=== PATIENT | male | born 1985 | race Caucasian/White ===

== ENCOUNTER → 2017-10-29 08:42 | Outpatient (REF) | payer SELFPAY | LOC: OM 08:42 | PROVIDERS: Visit Provider Nurse Practitioner Family | DX: Z02.83 Encounter for blood-alcohol and blood-drug test (principal) ==

== ENCOUNTER 2019-01-29 07:48 | Emergency (ER) | payer SELFPAY ==
[2019-01-29 07:53] VITALS: BP 145/101; PULSE 80; RESP 16; TEMP 36.2; O2SAT 99
--- NOTE | 2019-01-29 08:06 | ED.GENADUL_ITS ---
Discharge Plan Disposition Patient Disposition: HOME Condition: Stable Discharge Details Chief Complaint: Nk/Back Pain Clinical Impression: Low back pain ED Provider: Maldonado Ramsey Home Meds and New Rx's Prescriptions: New cyclobenzaprine 10 mg tablet 10 mg PO TID PRN (Reason: muscle spasm) Qty: 30 RF: 0 Discharge Instructions Instructions: Cyclobenzaprine (By mouth), Low Back Strain (ED) Additional Instructions: You can take 1000mg tylenol and 600mg ibuprofen every 6 hours for pain as needed Do not drink alcohol or operate heavy machinery if you take this medicine Start physical therapy and I have placed you on our follow up list to expedite an appointment with a primary care provider if you have high fevers, severe worsening pain or difficulty urinating return to the emergency department Stand Alone Forms: Physical Therapy Referral Medical Decision Making 33 yo male with no chronic medical problems comes in with intermittent right lower back pain radiating down the right leg. Denies any trauma, fevers, chills, denies difficulty urinating or changes in bowel movements, and denies ivdu. He feels better standing andd worse with bending forward, no midline back pain or warmth or erythema, has reproducible pain over right lower lumbar region. No saddle anesthesia, 5/5 strength in lower extremities, normal reflexes and noraml distal sensastion. I suspect likely sciatica vs disc herniation. No findings to suggest sea, cauda equina and do not feel emergent MRI indicated. Will have him start PT and get set up with a pcp, return precautions given Differential Diagnosis Differential Diagnosis: strain, sciatica, disc herniation HPI General Mode of arrival: ambulatory . Date/Time Provider Initiated Documentation: 01/29/19 07:52 . Limitations to Documentation: no limitations . Information obtained by: patient . History of Present Illness 33 year old M presents to the emergency department with the chief complaint of back pain, described as moderate, Quality is described as aching, Patient reports no radiation. Patient started experiencing this week(s) (6) and it has been intermittent. No relieving factors improve symptom(s), No exacerbating factors reported . Patient notes no other symptoms.. Patient did receive the following treatments prior to arrival, none Related Data Home Medications Medication Instructions Recorded Confirmed cyclobenzaprine 10 mg PO TID PRN #30 tab 01/29/19 Previous Rx's Medication Instructions Recorded cyclobenzaprine 10 mg PO TID PRN #30 tab 01/29/19 Allergies Allergy/AdvReac Type Severity Reaction Status Date / Time bupropion HCl Allergy Mild Hives Unverified 01/29/19 07:58 [From Wellbutrin] General Stated Complaint: Nk/Back Pain SUZANNE: 3 Review of Systems All systems reviewed & are unremarkable except as noted in HPI and below Constitutional Constitutional: Denies chills, Denies fever(s) and Denies weakness Cardiovascular Cardiovascular: Denies chest pain and Denies dyspnea Respiratory Respiratory: Denies dyspnea Gastrointestinal Gastrointestinal: Denies abdominal pain, Denies nausea and Denies vomiting Musculoskeletal Musculoskeletal: Denies joint swelling Neurologic Neurologic: Denies weakness PFSH Social History Smoking/Tobacco Use Status: Current every day Tobacco Type: cigarettes and e- cigarettes Substance use type: does not use Do you feel safe in your relationship?: Yes Exam Const General: no acute distress Orientation: alert HENMT Head: normal to inspection Ears: external ears normal General nose exam: external nose normal Mouth: moist mucous membranes Eyes General: appearance normal, both eyes and all related structures Neck Neck: normal visual inspection Resp Effort & Inspection: normal respiratory effort and able to speak in complete sentences Cardio Rate: regular rate Back/Spine/Pelvis Back: no CVA tenderness Skin General skin exam: no rashes or lesions noted Neuro General: alert and oriented x3 Extrem General: normal to inspection Psych Mental Status: mental status grossly normal Course Vital Signs Vital signs: Vital Signs Temperature 36.2 C L 01/29/19 07:53 Pulse 80 01/29/19 07:53 Respiratory Rate 16 01/29/19 07:53 Blood Pressure 145/101 H 01/29/19 07:53 Pulse Oximetry 99 01/29/19 07:53 Temperature 36.2 C L 01/29/19 07:53 Temperature Source Skin 01/29/19 07:53 Pulse 80 01/29/19 07:53 Respiratory Rate 16 01/29/19 07:53 Respiratory Effort Non-Labored 01/29/19 07:53 Blood Pressure 145/101 H 01/29/19 07:53 Blood Pressure Position Sitting 01/29/19 07:53 Pulse Oximetry 99 01/29/19 07:53 Oxygen Delivery Method Room Air 01/29/19 07:53 Oxygen Flow Rate 0 01/29/19 07:53 Pain Level 7 01/29/19 07:58
[2019-01-29] MEDS: Ketorolac 15 MG/ML VIAL IM (08:13)
== END 2019-01-29 08:29 | disposition home or self-care (01) ==
LOC: ER 08:22
PROVIDERS: Emergency Provider Emergency Medicine
DX: M54.5 Low back pain (principal)
CPT/HCPCS: 96372; 99284; 99283; J1885

== ENCOUNTER 2019-03-24 08:28 | Outpatient (CLI) | payer MEDICAID, SELFPAY ==
[2019-03-24 12:59] LABS: CREATININE 0.99 mg/dL (0.70-1.30); Calculated LDL 158 mg/dL; Cholesterol 226 mg/dL (<200); HDL Cholesterol 41 mg/dL (40-60); Potassium 4.7 mmol/L (3.5-5.1); Triglyceride 137 mg/dL (<150)
[2019-03-24 13:13] LABS: Hemoglobin A1C 5.4 % (3.8-5.6)
== END 2019-03-24 08:48 ==
PROVIDERS: PCP Nurse Practitioner; Visit Provider Nurse Practitioner
DX: I10 Essential (primary) hypertension (principal); Z13.1 Encounter for screening for diabetes mellitus; Z13.6 Encounter for screening for cardiovascular disorders
CPT/HCPCS: 36415; 80061; 82565; 83036; 84132

== ENCOUNTER 2020-08-16 16:00 | Outpatient (REF) | payer BC, MEDICAID, SELFPAY ==
[2020-08-16 20:46] LABS: CREATININE 1.2 mg/dL (0.70-1.30); Cholesterol 287 mg/dL (<200); HDL Cholesterol 36 mg/dL (40-60); Potassium 4.6 mmol/L (3.5-5.1); Triglyceride 666 mg/dL (<150)
[2020-08-16 22:08] LABS: LDL CHOLESTEROL 146 mg/dL (<100)
== END 2020-08-16 16:01 | disposition home or self-care (01) ==
LOC: LBN 16:00
PROVIDERS: PCP Nurse Practitioner; Visit Provider Nurse Practitioner
DX: I10 Essential (primary) hypertension (principal); E78.5 Hyperlipidemia, unspecified
CPT/HCPCS: 80061; 83721; 82565; 84132

== ENCOUNTER 2021-05-29 10:26 | Emergency (ER) | payer MEDICAID, SELFPAY ==
[2021-05-29 10:35] VITALS: BP 137/89; PULSE 62; RESP 18; TEMP 36.3; O2SAT 100
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
--- NOTE | 2021-05-29 11:23 | DI.RAD_ITS ---
Exam(s) XR FINGER LT RING EXAM: XR FINGER LT RING CLINICAL HISTORY: closed distal aspect in door. TECHNIQUE: 2D digital imaging was performed. COMPARISON: No exams were available for comparison FINDINGS: 3 views 4th-ring finger. There is a comminuted fracture of the tuft of distal phalanx with some displacement. There is no radiopaque foreign body. No additional elsewhere in. IMPRESSION: DATA REPOSITORY: RADIATION DOSE DELIVERED:
[2021-05-29] MEDS: Lidocaine 1% Multi-Dose 50 ML VIAL (12:25)
[2021-05-29] MEDS: Acetaminophen 500 MG TAB 1000 MG PO (12:50)
[2021-05-29] MEDS: Ibuprofen 600 MG TAB PO (12:51)
== END 2021-05-29 13:00 | disposition home or self-care (01) ==
PROVIDERS: Emergency Provider Physician Assistant; PCP Nurse Practitioner
DX: S62.635B Displaced fracture of distal phalanx of left ring finger, initial encounter for open fracture (principal); W23.0XXA Caught, crushed, jammed, or pinched between moving objects, initial encounter; Y99.0 Civilian activity done for income or pay
CPT/HCPCS: 11750; 12001; 29130; 99283; 73140

== ENCOUNTER 2022-10-23 14:06 | Emergency (ER) | payer BC, MEDICAID, SELFPAY ==
[2022-10-23 14:08] VITALS: BP 174/109; PULSE 89; RESP 20; TEMP 36.5; O2SAT 99
--- NOTE | 2022-10-23 14:23 | DI.MRI_ITS ---
Exam(s) MR LUMBAR SPINE WO EXAM: MR LUMBAR SPINE WO CLINICAL HISTORY: severe low back pain, subjective numbness feet. TECHNIQUE: Multiplanar multisequence MRI of the Lumbar spine was performed. COMPARISON: None FINDINGS: Bones: The last intervertebral disc space is designated the L5/S1 level for the numbering purpose of this ex amination. The vertebral body heights are well maintained. Alignment: Unremarkable. The marrow signal characteristics are unremarkable. Cord: The conus tip ends at the T12 level. It is of normal size and signal intensity. T12-L1: No focal disc herniation is present. No central spinal canal stenosis.No neural foraminal st enosis. L1-2: No focal disc herniation is present. No central spinal canal stenosis.No neural foraminal sten osis. L2-3: No focal disc herniation is present. No central spinal canal stenosis.No neural foraminal alejo nosis. L3-4: No focal disc herniation is present. No central spinal canal stenosis.No neural foraminal alejo nosis. L4-5:Disc height is normal. Tiny central subligamentous disc protrusion without visible nerve root i mpingement. No central spinal canal stenosis.No neural foraminal stenosis. L5-S1: Disc bulging no central spinal canal stenosis.No neural foraminal stenosis. The visualized SI joints and sacrum are well maintained. Soft tissues: The paraspinal soft tissues are unremarkable. IMPRESSION: Tiny central disc protrusion at L4-5 without visible nerve root impingement. Minimal disc bulging at L5-S1. No evidence of significant spinal stenosis or neuroforaminal narrowing. DATA REPOSITORY:
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
[2022-10-23] MEDS: Acetaminophen 500 MG TAB 1000 MG PO (14:44)
[2022-10-23] MEDS: Ketorolac 15 MG/ML VIAL IVP (14:44)
[2022-10-23] MEDS: Dexamethasone 10 MG/ML VIAL IVP (14:44)
[2022-10-23] MEDS: MORPHine 4 MG/ML SYR IVP (14:44)
[2022-10-23 14:54] LABS: Abs Immature Grans 0.01 10^3/uL (0.0-0.06); Absolute Basophil Count 0.07 10^3/uL (0.0-0.2); Absolute Eosinophil Count 0.12 10^3/uL (0.0-0.7); Absolute Lymphocyte Count 2.53 10^3/uL (1.2-3.4); Absolute Monocyte Count 0.54 10^3/uL (0.1-0.8); Absolute Neutrophil Count 4.05 10^3/uL (1.2-6.7); Eosinophils % 1.6; HCT 48.2 % (40.0-50.0); HGB 17.1 g/dL (13.5-17.5); Immature Grans % 0.1; Lymphocytes % 34.6; MCH 32.1 pg (27.0-33.0); MCHC 35.5 % (32.0-36.0); MCV 90 fL (80-95); MPV 9.5 fL (8.0-11.0); Monocytes % 7.4; Neutrophils % 55.3; Platelet Count 293 10^3/uL (130-400); RBC 5.33 10^6/uL (4.36-5.78); RDW 11.6 % (11.8-14.1); RDW-SD 38.7 fL; WBC 7.32 10^3/uL (4.4-10.8)
[2022-10-23 14:57] LABS: ESR 4 mm/hr (0-15)
[2022-10-23 15:08] LABS: C-Reactive Protein 0.27 mg/dL (0.0-0.3)
[2022-10-23 15:10] LABS: ALT 40 U/L (16-63); AST 13 U/L (15-37); Albumin 4.7 g/dL (3.4-5.0); Alkaline Phosphatase 73 U/L (46-116); Anion Gap 13.3 mmol/L (3-11); BUN 10 mg/dL (7-18); Bilirubin, Total 0.7 mg/dL (0.2-1.0); CO2 26.7 mmol/L (21.0-32.0); CREATININE 1.1 mg/dL (0.70-1.30); Calcium 10.2 mg/dL (8.5-10.1); Chloride 105 mmol/L (98-107); Estimated GFR 87.57 (mL/min/1.73m2); Glucose 96 mg/dL (74-106); Sodium 145 mmol/L (136-145); Total Protein 8.2 g/dL (6.4-8.2)
[2022-10-23 16:00] VITALS: BP 137/99; PULSE 92; RESP 16; TEMP 36.6; O2SAT 97
--- NOTE | 2022-10-23 16:54 | PT.INIE ---
PT Notes Physical Therapy Inpatient Initial Evaluation/Discharge Date: 10/23/22 Referring Doctor: Janeen Duarte MD PT Orders: PT CONSULT: Safety Consult for D/C Precautions: Fall. Standard. Patient Profile/Admitting Diagnosis: Renny is a 37 yo male that presented to the ER today for back pain affecting mobility. He reports intermittent episodes of back pain that usually resolve with PT. He did try his stretches without help. Reports was unable to lay down, needed furniture surfing for ambulation. PMHX: See EMR Social History/Home Situation: Lives with significant other and kids in 2nd floor apartment with bilateral rails. 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 Can usually manage back flares with exercises and PT. Equipment Owned/DME: None Subjective: Cleared by nursing to see patient and patient is agreeable to PT. Patient sitting up in transport chair at time of consult on his phone, shaking/bouncing of lower extremity. Objective: General Observation: Patient appears tired, decreased lumbar lordosis. Mental Status: A&O x3 Pain: 8/10 low back ROM: Right Upper Extremity: Shoulder Flexion WFL. Shoulder abduction WFL. Elbow flexion WFL. Wrist flexion WFL. Opening and closing of hand WFL. Left Upper Extremity: Shoulder Flexion WFL. Shoulder abduction WFL. Elbow flexion WFL. Wrist flexion WFL. Opening and closing of hand WFL. Right Lower Extremity: Hip flexion WFL. Hip abduction WFL. Knee flexion WFL. Ankle dorsiflexion WFL. Ankle plantarflexion WFL. Left Lower Extremity: Hip flexion WFL. Hip abduction WFL. Knee flexion WFL. Ankle dorsiflexion WFL. Ankle plantarflexion WFL. Strength: Right Upper Extremity: Not assessed, grossly intact and functional. Left Upper Extremity: Not assessed, grossly intact and functional. Right Lower Extremity: Not assessed, grossly intact and functional. Left Lower Extremity: Not assessed, grossly intact and functional. Sensation: Intact as to pain and pressure on bilateral lower extremities. Bed Mobility/Transfers: Sit to stand: Supervision - poor transition with increased effort Stand to sit: Supervision - controlled Gait: Ambulated several steps in room without assistive device - lack of knee and hip extension, shuffling step to gait, forward lean at trunk Ambulated several steps in room with FWW - continues to have lack of knee and hip extension, shuffling step to gait, but more stable and safer with reduced risk for fall. Able to stay more upright than without. Stairs: Not assessed - He feels will be able to manage the stairs, determined to go home Balance: Static Sitting: Normal Dynamic Sitting: Good Static Standing: Good Dynamic Standing: Fair Therapeutic Activity ([id number]) for instruction in dynamic activities with one on one patient contact by this provider to improve functional performance, dynamic movement, and functional strengthening as follows: 15 minutes Discussed avoiding flexion positioning As irritability reduces he may like sink stretch to give sense of distraction Can try supine with legs 90/90 for decreased disc compression if tolerant of position Instruction in use of FWW for ambulation for improved safety Instruction in pelvic floor (PF) and transversus abdominis (TA) activation in attempt at deep core brace with sit to stand Discussed home TENs unit as this has helped in past - states mother just ordered him one Special Tests: Mobility Limitations Standardized Measure [facility] AM-PAC 6 clicks Basic Mobility Inpatient Short Form: Raw Score: 17 CMS Score: 51% Informed Consent/Education: Patient instructed in purpose of PT consult and plan of care. Assessment: Renny reports back pain unlike he typically experiences with flare episode. Poor ability to walk and perform transfers. Had to call out from work today and needed assistance getting to car. He is doing better with the pain management compared to when he arrived, but continues to have limitations in overall ability. Sit to stand is painful, but able to perform. Better safety with use of FWW with reduced concerns for fall. Still difficult to fully lengthen upright due to pain. Notable forward lean and step to shuffling gait with ambulation. Imaging shows mild disc bulge in lower levels without compression on nerve roots. Extension based positioning appears better tolerated. Patient is determined to return home. He has outpatient PT evaluation scheduled tomorrow which he is looking forward to. Recommend discharge home with FWW and hopefully pain management to get him through evening until outpatient PT tomorrow. Patient presents with clinical signs and symptoms consistent with current/admitting diagnoses that have resulted to mobility limitations, gait instability, generalized weakness, and impairment of motor control as demonstrated by the following impairment level findings: 1. Impaired standing balance 2. Impaired activity tolerance 3. Limitation of joint range of motion in lumbar spine Impairments are contributing to the following functional limitations: 1. Increased dependence with transfers 2. Inability to safely ambulate without assistive device and physical assistance 3. Increase completion time for mobility ADL performance 4. Increased fall risk 5. Inability to negotiate steps alone safely Patient is assessed as a Low complexity based on the following: History: 37 year old male with impairment level findings, functional limitations, and past medical history as indicated above Examination: Demonstrable impairment in strength, balance, and mobility level with underlying impairments and functional limitations as documented above Presentation: Evolving Decision Making: Low complexity Plan of Care/Treatment Plan: Evaluation only and discharged from skilled PT services. Discharge Plan DISCHARGE RECOMMENDATIONS: Home with outpatient PT TREATMENT CODE/TIME: 16:23-16:55 (32 minutes), [id number], [id number] Thank you for the opportunity to participate in the care of this patient. Eileen Thompson, PT, DPT, OCS [facility] [place], [place]
--- NOTE | 2022-10-23 18:16 | NUR.NOTE ---
Nursing Note: referral to [facility]
== END 2022-10-23 17:10 | disposition home or self-care (01) ==
PROVIDERS: Emergency Provider Student in an Organized Health Care Education/Training Program; PCP Nurse Practitioner Family
DX: M54.32 Sciatica, left side (principal); M54.31 Sciatica, right side
CPT/HCPCS: 36415; 80053; 85652; 96374; 96375; 97161; 97530; 99284; 72148; 85025; 86140; J1100; J1885; J2270